=== PATIENT | female | born 1980 | race Caucasian/White ===

== ENCOUNTER → 2018-07-20 | Outpatient (CLI) | payer OTHER ==
[2018-07-20 13:37] VITALS: BP 126/74; PULSE 89; TEMP 97.7; BMI 36.5
--- NOTE | 2018-07-20 14:18 | P.HPOB ---
History of Present Illness H&P Date: 07/20/18 Chief Complaint: The patient is here for her routine gynecologic exam This is a 38-year-old G0 with an LMP of 05/02/2018. The patient is without gynecologic complaints and states she is doing well on Quasense extended cycle oral contraception. Review of Systems The patient's weight has been stable over the last year. She denies respiratory , cardiac, or G.I. problems. Past Medical History Past Medical History: No Reported History, Asthma Additional Past Medical History / Comment(s): Seasonal allergies and dermatitis of the hand. 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 History of Any Multi-Drug Resistant Organisms: None Reported Past Surgical History: Adenoidectomy, Tonsillectomy (With adenoidectomy) Additional Past Surgical History / Comment(s): [place] teeth removed. Past Psychological History: No Psychological Hx Reported Smoking Status: Former smoker (Quit smoking 2003.) Past Alcohol Use History: Rare (2 per year) Past Drug Use History: None Reported Additional History: She has been since 2009 and works in [employer]. - Past Family History Father Family Medical History: Hypertension Mother Family Medical History: Diabetes Mellitus, Hypertension Medications and Allergies Home Medications Medication Instructions Recorded Confirmed Type Loratadine/Pseudoephedrine DIRECTED 07/20/18 History [Alavert D-12 Allergy-Sinus Tab] Quasense 1 tablet PO DAILY 07/20/18 History Allergies Allergy/AdvReac Type Severity Reaction Status Date / Time Penicillins Allergy Mild Nausea Unverified 07/20/18 13:38 Exam Vital Signs Temp Pulse BP 07/20/18 13:27 97.7 F 89 126/74 Intake and Output 07/19/18 07/20/18 07/20/18 22:59 06:59 14:59 Other: Weight 84.822 kg Height 5'0", weight 187 pounds, BMI 36.5. This is a well-developed well-nourished heavyset white female who is alert and oriented times 3 in no acute distress. HEENT: Within normal limits. NECK: Supple without mass or thyromegaly. CHEST AND LUNGS: Clear to auscultation. HEART: Regular rate and rhythm. BREASTS: Are without mass or discharge. AXILLARY EXAM: Negative for adenopathy. BACK: Negative for CVA tenderness. ABDOMEN: Soft, nontender, without palpable masses. PELVIC EXAM: Normal external genitalia. Cervix and vagina appear normal. There is no unusual discharge. There is no evidence of prolapse. The uterus is midposition, nongravid size and nontender. There are no palpable adnexal masses or tenderness. RECTAL EXAM: declined by the patient. EXTREMITIES: Nontender. IMPRESSION: 1. 38-year-old female with normal gynecologic exam who is doing well with extended cycle oral contraception. PLAN: 1. Pap smear was performed. 2. Self breast awareness was discussed with the patient. 3. Continue extended cycle oral contraception. The prescription for Quasense will be sent electronically to [facility] in [place]. 4. Osteoporosis prevention was discussed. I have stressed the importance of adequate calcium, vitamin D and regular exercise. Recommended amounts of calcium and vitamin D were also discussed. 5. She will return in one year.
== END ==
LOC: WWCWWP 13:08
PROVIDERS: ATTEND Obstetrics & Gynecology
DX: Z53.9 Procedure and treatment not carried out, unspecified reason (principal)

== ENCOUNTER → 2019-07-26 | Outpatient (CLI) | payer OTHER ==
[2019-07-26 15:52] VITALS: BP 124/71; PULSE 84; RESP 16; TEMP 98.3
--- NOTE | 2019-07-26 16:48 | P.HPOB ---
History of Present Illness H&P Date: 07/26/19 Chief Complaint: the patient is here for her routine gynecologic exam. This is a 39-year-old G0 with an LMP of 05/03/2019. The patient has been doing well with extended cycle oral contraception. She states she currently is on Jolessa and has menstrual periods every 3 months. She is not interested in getting at this time. She is without gynecologic complaints. She has intentionally lost weight with diet and exercise. She has been on a low sugar and low carbohydrate diet. Review of Systems she states she has gradually lost weight over the last year and she has lost approximately 58 pounds. She has done this with dietary changes and exercise. She denies respiratory, cardiac, or GI problems. Past Medical History Past Medical History: No Reported History, Asthma Additional Past Medical History / Comment(s): Seasonal allergies and dermatitis of the hand. 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 History of Any Multi-Drug Resistant Organisms: None Reported Past Surgical History: Adenoidectomy, Tonsillectomy Additional Past Surgical History / Comment(s): [place] teeth removed. Past Psychological History: No Psychological Hx Reported Smoking Status: Former smoker Past Alcohol Use History: Rare Additional Past Alcohol Use History / Comment(s): quit smoking in 2003. Past Drug Use History: None Reported Additional History: she has been since 2009 and works in [employer] in [place]. - Past Family History Father Family Medical History: Hypertension Mother Family Medical History: Diabetes Mellitus, Hypertension Medications and Allergies Home Medications Medication Instructions Recorded Confirmed Type Quasense 1 tablet PO DAILY 84 Days #0 NS 07/20/18 07/26/19 Rx Calcium Carbonate [Calcium] 600 mg PO DAILY 07/26/19 07/26/19 History Magnesium 200 mg PO DAILY 07/26/19 07/26/19 History Multivitamin [Multivitamins Adult 1 tab PO DAILY 07/26/19 07/26/19 History Gummies] Potassium 99 mg PO DAILY 07/26/19 07/26/19 History Allergies Allergy/AdvReac Type Severity Reaction Status Date / Time Penicillins Allergy Mild Nausea Unverified 07/26/19 15:46 Exam Vital Signs Temp Pulse Resp BP Pulse Ox 07/26/19 15:50 98.3 F 84 16 124/71 99 Intake and Output 07/26/19 07/26/1907/26/19 06:59 14:59 22:59 Other: Weight 58.513 kg height 5 feet 0 inches, weight 129 pounds, BMI 25.2. This is a well-developed well-nourished White female who is alert and oriented times 3 in no acute distress. HEENT: Within normal limits. NECK: Supple without mass or thyromegaly. CHEST AND LUNGS: Clear to auscultation. HEART: Regular rate and rhythm. BREASTS: Are without mass or discharge. AXILLARY EXAM: Negative for adenopathy. BACK: Negative for CVA tenderness. ABDOMEN: Soft, nontender, without palpable masses. PELVIC EXAM: Normal external genitalia. Cervix and vagina appear normal. There is no unusual discharge. There is no evidence of prolapse. The uterus is midposition, nongravid size and nontender. There are no palpable adnexal masses or tenderness. RECTAL EXAM: negative for mass or tenderness. EXTREMITIES: Nontender. IMPRESSION: 1. 39-year-old female with normal gynecologic exam doing well on extended cycle oral contraception. 2. Intentional weight loss with diet and exercise. PLAN: 1. Pap smear was deferred since she had a normal one on 07/20/2018. 2. Self breast awareness was discussed with the patient. 3. we will plan on getting a screening mammogram at age 40 next year. 4. Osteoporosis prevention was discussed. I have stressed the importance of adequate calcium, vitamin D and regular exercise. Recommended amounts of calcium and vitamin D were also discussed. 5. she will be continued on the extended cycle oral contraception. The electronic prescription will be sent to [facility] pharmacy in [place]. 6. She was advised to return in one year for her annual well woman exam.
== END | disposition home or self-care (01) ==
LOC: WWCWWP 15:32
PROVIDERS: ATTEND Obstetrics & Gynecology
DX: Z53.9 Procedure and treatment not carried out, unspecified reason (principal)